=== PATIENT | male | born 1970 | race African-American/Black ===

== ENCOUNTER 2017-01-05 22:33 | Emergency (ER) | payer SELFPAY ==
[~2017-01-05] VITALS: Ht 185.4 cm; Wt 85.0 kg
[2017-01-05 22:35] VITALS: BP 134/94; PULSE 78; RESP 16; TEMP 97.8; O2SAT 98
--- NOTE | 2017-01-05 22:46 | PD ---
HPI Chief Complaint: Psychiatric Symptoms Time Seen by Provider: 22:41 Travel History International Travel<30 days: No Contact w/Intl Traveler<30days: No Traveled to known affect area: No History of Present Illness HPI 46-year-old male with history of alcoholism presents to emergency department voluntarily for psychiatric evaluation. He is accompanied by his who states that he needs help and has a problem. Patient states that he does drink a lot of alcohol and "smoke a lot of weed." He states at times he does think of suicide but has no suicidal thought or plan at this time. Denies any psychiatric history. Has no other symptoms to report. PFSH Past Medical History Medical History: Denies Significant Hx Diminished Hearing: No Inguinal Hernia: Yes Integumentary: Yes (RASH DUE TO CEMENT EXPOSURE PER PT) Tetanus Vaccination: > 5 Years Influenza Vaccination: No Past Surgical History Surgical History: No Previous Surgery Social History Alcohol Use: Yes (3 BEERS/DAY) Tobacco Use: No Substance Use: Yes (marijuana) Allergies-Medications (Allergen,Severity, Reaction): Coded Allergies: cortisone (Unverified Allergy, Mild, HIVES, 01/05/17) Reported Meds & Prescriptions Reported Meds & Active Scripts Active No Active Prescriptions or Reported Medications Review of Systems Except as stated in HPI: all other systems reviewed are Neg Physical Exam Narrative GENERAL: Well-nourished male patient, clinically of toxic with mumbled slurred speech, but in no acute distress SKIN: Focused skin assessment warm/dry. HEAD: Atraumatic. Normocephalic. EYES: Pupils equal and round. No scleral icterus. No injection or drainage. ENT: No nasal bleeding or discharge. Mucous membranes pink and moist. NECK: Trachea midline. No JVD. CARDIOVASCULAR: Regular rate and rhythm. No murmur appreciated. RESPIRATORY: No accessory muscle use. Clear to auscultation. Breath sounds equal bilaterally. GASTROINTESTINAL: Abdomen soft, non-tender, nondistended. Hepatic and splenic margins not palpable. MUSCULOSKELETAL: No obvious deformities. No clubbing. No cyanosis. No edema. NEUROLOGICAL: Awake and alert. No obvious cranial nerve deficits. Motor grossly within normal limits. Normal speech. Data Data Last Documented VS Vital Signs Date Time Temp Pulse Resp B/P (MAP) Pulse Ox O2 Delivery O2 Flow Rate FiO2 01/06/17 02:19 71 20 155/76 (102) 01/05/17 22:35 97.8 98 Room Air Orders Orders Complete Blood Count With Diff (01/05/17 22:44) Basic Metabolic Panel (Bmp) (01/05/17 22:44) Psych Screen (01/05/17 22:44) Drug Screen, Random Urine (01/05/17 22:44) Alcohol (Ethanol) (01/05/17 22:44) Diet Regular Basic (01/06/17 Breakfast) Labs Laboratory Tests Test 01/05/17 22:52 White Blood Count 6.2 TH/MM3 Red Blood Count 4.46 MIL/MM3 Hemoglobin 14.1 GM/DL Hematocrit 40.4 % Mean Corpuscular Volume 90.7 FL Mean Corpuscular Hemoglobin 31.6 PG Mean Corpuscular Hemoglobin Concent 34.8 % Red Cell Distribution Width 13.0 % Platelet Count 215 TH/MM3 Mean Platelet Volume 7.8 FL Neutrophils (%) (Auto) 41.7 % Lymphocytes (%) (Auto) 49.5 % Monocytes (%) (Auto) 6.5 % Eosinophils (%) (Auto) 1.7 % Basophils (%) (Auto) 0.6 % Neutrophils # (Auto) 2.6 TH/MM3 Lymphocytes # (Auto) 3.1 TH/MM3 Monocytes # (Auto) 0.4 TH/MM3 Eosinophils # (Auto) 0.1 TH/MM3 Basophils # (Auto) 0.0 TH/MM3 CBC Comment DIFF FINAL Differential Comment Blood Urea Nitrogen 7 MG/DL Creatinine 0.83 MG/DL Random Glucose 92 MG/DL Calcium Level 8.4 MG/DL Sodium Level 143 MEQ/L Potassium Level 3.8 MEQ/L Chloride Level 108 MEQ/L Carbon Dioxide Level 25.1 MEQ/L Anion Gap 10 MEQ/L Estimat Glomerular Filtration Rate 120 ML/MIN Ethyl Alcohol Level 208 MG/DL MDM Medical Decision Making Medical Screen Exam Complete: Yes Emergency Medical Condition: Yes Medical Record Reviewed: Yes Differential Diagnosis Mood disorder versus personality disorder versus adjustment reaction disorder versus substance abuse Narrative Course 46-year-old male presents to emergency department voluntarily for psychiatric evaluation. Patient appears without distress. He is clinically intoxicated drinking enlargement alcohol today. Denies suicidal or homicidal ideations. Laboratory Tests Test 01/05/17 22:52 White Blood Count 6.2 TH/MM3 Red Blood Count 4.46 MIL/MM3 Hemoglobin 14.1 GM/DL Hematocrit 40.4 % Mean Corpuscular Volume 90.7 FL Mean Corpuscular Hemoglobin 31.6 PG Mean Corpuscular Hemoglobin Concent 34.8 % Red Cell Distribution Width 13.0 % Platelet Count 215 TH/MM3 Mean Platelet Volume 7.8 FL Neutrophils (%) (Auto) 41.7 % Lymphocytes (%) (Auto) 49.5 % Monocytes (%) (Auto) 6.5 % Eosinophils (%) (Auto) 1.7 % Basophils (%) (Auto) 0.6 % Neutrophils # (Auto) 2.6 TH/MM3 Lymphocytes # (Auto) 3.1 TH/MM3 Monocytes # (Auto) 0.4 TH/MM3 Eosinophils # (Auto) 0.1 TH/MM3 Basophils # (Auto) 0.0 TH/MM3 CBC Comment DIFF FINAL Differential Comment Blood Urea Nitrogen 7 MG/DL Creatinine 0.83 MG/DL Random Glucose 92 MG/DL Calcium Level 8.4 MG/DL Sodium Level 143 MEQ/L Potassium Level 3.8 MEQ/L Chloride Level 108 MEQ/L Carbon Dioxide Level 25.1 MEQ/L Anion Gap 10 MEQ/L Estimat Glomerular Filtration Rate 120 ML/MIN Ethyl Alcohol Level 208 MG/DL Patient is medically cleared to undergo psychiatric screening for further evaluation and disposition. Mental health screening discussed with the patient. Psychiatric screen ordered. Diagnosis Primary Impression: Substance induced mood disorder Additional Impression: Alcohol abuse Scripts No Active Prescriptions or Reported Meds Condition: Stable Diane Sun Jan 05, 2017 22:46
[2017-01-05 23:05] LABS: AUTOMATED NEUTROPHIL # 2.6 TH/MM3 (1.8-7.7); BASOPHIL % 0.6 % (0.0-2.0); EOSINOPHIL # 0.1 TH/MM3 (0-0.4); EOSINOPHIL % 1.7 % (0.0-4.0); HEMATOCRIT 40.4 % (39.0-51.0); HEMO FLAGS DIFF FINAL; LYMPH % 49.5 % (9.0-44.0); LYMPHOCYTE # 3.1 TH/MM3 (1.0-4.8); MEAN CELL VOLUME 90.7 FL (80.0-100.0); MEAN CORPUSCULAR HEMOGLOBIN 31.6 PG (27.0-34.0); MEAN CORPUSCULAR HGB CONC 34.8 % (32.0-36.0); MONO % 6.5 % (0.0-8.0); NEUT % 41.7 % (16.0-70.0); PLATELET COUNT 215 TH/MM3 (150-450); RED BLOOD COUNT 4.46 MIL/MM3 (4.50-5.90); WHITE BLOOD COUNT 6.2 TH/MM3 (4.0-11.0)
[2017-01-05 23:17] LABS: BICARBONATE 25.1 MEQ/L (21.0-32.0); POTASSIUM 3.8 MEQ/L (3.5-5.1)
[2017-01-06 02:19] VITALS: BP 155/76; PULSE 71; RESP 20
--- NOTE | 2017-01-06 08:29 | PD ---
Physical Exam Date Seen by Provider: Jan 06, 2017 Time Seen by Provider: 08:22 Narrative This is a patient was initially seen and evaluated by Dr. Iglesias. He was voluntary for psych evaluation. Patient had made suicidal comments while intoxicated. The patient states that he does not want to kill himself now that he is sobered up. He's been evaluated by our psychiatric screener who is also been in contact with Dr. Bateman who agrees the patient does not meet Montano act criteria. Data Data Last Documented VS Vital Signs Date Time Temp Pulse Resp B/P (MAP) Pulse Ox O2 Delivery O2 Flow Rate FiO2 01/06/17 02:19 71 20 155/76 (102) 01/05/17 22:35 97.8 98 Room Air Orders Orders Complete Blood Count With Diff (01/05/17 22:44) Basic Metabolic Panel (Bmp) (01/05/17 22:44) Psych Screen (01/05/17 22:44) Drug Screen, Random Urine (01/05/17 22:44) Alcohol (Ethanol) (01/05/17 22:44) Diet Regular Basic (01/06/17 Breakfast) Labs Laboratory Tests Test 01/05/17 22:52 White Blood Count 6.2 TH/MM3 Red Blood Count 4.46 MIL/MM3 Hemoglobin 14.1 GM/DL Hematocrit 40.4 % Mean Corpuscular Volume 90.7 FL Mean Corpuscular Hemoglobin 31.6 PG Mean Corpuscular Hemoglobin Concent 34.8 % Red Cell Distribution Width 13.0 % Platelet Count 215 TH/MM3 Mean Platelet Volume 7.8 FL Neutrophils (%) (Auto) 41.7 % Lymphocytes (%) (Auto) 49.5 % Monocytes (%) (Auto) 6.5 % Eosinophils (%) (Auto) 1.7 % Basophils (%) (Auto) 0.6 % Neutrophils # (Auto) 2.6 TH/MM3 Lymphocytes # (Auto) 3.1 TH/MM3 Monocytes # (Auto) 0.4 TH/MM3 Eosinophils # (Auto) 0.1 TH/MM3 Basophils # (Auto) 0.0 TH/MM3 CBC Comment DIFF FINAL Differential Comment Blood Urea Nitrogen 7 MG/DL Creatinine 0.83 MG/DL Random Glucose 92 MG/DL Calcium Level 8.4 MG/DL Sodium Level 143 MEQ/L Potassium Level 3.8 MEQ/L Chloride Level 108 MEQ/L Carbon Dioxide Level 25.1 MEQ/L Anion Gap 10 MEQ/L Estimat Glomerular Filtration Rate 120 ML/MIN Ethyl Alcohol Level 208 MG/DL MDM Medical Record Reviewed: Yes Supervised Visit with JEFF: No Narrative Course 46-year-old male who made comments of hurting himself. The patient was intoxicated on alcohol. Now that he is sober, he is remorseful for the comments. He does not meet Montano act criteria at this time. He'll be discharged as he has worked today at 9 AM. Diagnosis Primary Impression: Substance induced mood disorder Additional Impression: Alcohol abuse Referrals: [facility] Additional Instruction: Avoid drinking alcohol. Follow up with outpatient act. Scripts No Active Prescriptions or Reported Meds Disposition: 01 DISCHARGE HOME Condition: Stable Curly Tyson MD Jan 06, 2017 08:29
== END 2017-01-06 10:20 | disposition home or self-care (01) ==
LOC: NEPD 22:33 → NEPJ 01-06 10:20
DX: F19.94 Other psychoactive substance use, unspecified with psychoactive substance-induced mood disorder (principal); F10.10 Alcohol abuse, uncomplicated
CPT/HCPCS: 80048; 80307; 85025; 99283